=== PATIENT | male | born 1970 | race Caucasian/White ===

== ENCOUNTER 2018-02-20 13:23 | Emergency (ER) | payer MEDICAID ==
[~2018-02-20] VITALS: Ht 182.9 cm; Wt 80.2 kg
[~2018-02-20 13:23] MED LIST: CEPH500C5 PO; CLIN150C8 PO; HYDR-569 PO
[2018-02-20 13:29] VITALS: BP 140/84
[2018-02-20] MEDS ORDERED: benoxinate/fluorescein ophth drops 5ml bottle EACHEYE ONE (14:20)
[2018-02-20] MEDS ORDERED: PROPARACAINE/FLUORESCEIN ophthalmic drops 5ml bottle EACHEYE ONE (14:30)
[2018-02-20] MEDS ORDERED: ERYT1OIN6 EACHEYE (14:44)
== END 2018-02-20 15:30 | disposition home or self-care (01) ==
LOC: ER 13:24
DX: H10.9 Unspecified conjunctivitis (principal); F17.200 Nicotine dependence, unspecified, uncomplicated; F15.90 Other stimulant use, unspecified, uncomplicated; Z90.49 Acquired absence of other specified parts of digestive tract; Z79.899 Other long term (current) drug therapy
CPT/HCPCS: 99283